=== PATIENT | female | born 1970 | race Caucasian/White ===

== ENCOUNTER 2016-09-29 11:42 | Emergency (ER) | payer OTHER ==
[~2016-09-29] VITALS: Ht 167.6 cm; Wt 86.4 kg
[2016-09-29 13:21] LABS: HEMATOCRIT 42.2 % (36.0-46.0); MCH 27.8 PG (29.0-34.0); MCHC 31.5 G/DL (30.0-36.0); MCV 88.3 FL (83-99); MEAN PLAT.VOLUME 10.2 uM^3 (9.5-12.4); PLATELET COUNT 245 K/uL (156-360); RBC DIS.WIDTH-CV 14.1 % (11.8-14.6); RBC DIS.WIDTH-SD 45.7 % (39-53); RED BLOOD COUNT 4.78 M/uL (3.80-5.20); WHITE BLOOD COUNT 4.4 K/uL (4.1-10.2)
[2016-09-29 13:27] LABS: ADD MIUA? NO; BILIRUBIN NEGATIVE; BLOOD NEGATIVE; COLOR YELLOW ((YELLOW)); GLUCOSE (STRIP) NEGATIVE; KETONES NEGATIVE; LEUKOCYTES NEGATIVE; NITRITE NEGATIVE; PROTEIN (STRIP) NEGATIVE; SPECIFIC GRAVITY 1.017 (1.000-1.030); UROBILINOGEN 0.2 MG/DL (0.2-1.0)
[2016-09-29 13:34] LABS: CHLORIDE 111 mEq/L (99-109); POTASSIUM 3.9 mEq/L (3.7-5.4); SODIUM 140 mEq/L (136-147)
[2016-09-29 13:37] LABS: GLUCOSE 84 mg/dL (70-99)
[2016-09-29 13:38] LABS: ANION GAP 11 MEQ/L (2-14)
[2016-09-29 13:39] LABS: TOTAL BILIRUBIN 0.3 mg/dL (0.0-1.0)
[2016-09-29 13:40] LABS: ALKALINE PHOSPHATASE 94 IU/L (3-129); GFR ESTIMATE (CALCULATED) > 59 mL/min/
[2016-09-29 13:41] LABS: UREA NITROGEN (BUN) 11 mg/dL (9-23)
[2016-09-29 13:49] LABS: QUANTITATIVE HCG < 4.0 MIU/ML
[2016-09-29] MEDS ORDERED: DICYCLOMINE HCL20 MG PO (17:21)
[2016-09-29] MEDS ORDERED: FLEXERIL10 MG PO (17:21)
[2016-09-29] MEDS ORDERED: ULTRAM50 MG PO (17:21)
[2016-09-29 17:58] VITALS: BP 132/76
== END 2016-09-29 17:59 | disposition home or self-care (01) ==
LOC: EME 11:42
PROVIDERS: Nurse Practitioner Family
DX: R10.31 Right lower quadrant pain (principal); Z88.1 Allergy status to other antibiotic agents; Z88.6 Allergy status to analgesic agent; Z91.018 Allergy to other foods; Z98.84 Bariatric surgery status; Z90.710 Acquired absence of both cervix and uterus; I10 Essential (primary) hypertension
CPT/HCPCS: 74177; 76856; 80053; 81003; 84702; 85027; 99281; 99284; J1885; J3010; J7040

== ENCOUNTER 2016-11-02 18:18 | Emergency (ER) | payer OTHER ==
[~2016-11-02] VITALS: Ht 167.6 cm; Wt 84.6 kg
[~2016-11-02 18:18] MED LIST: DICYCLOMINE HCL20 MG PO; FLEXERIL10 MG PO; ULTRAM50 MG PO
[2016-11-02 19:12] LABS: MCH 28.5 PG (29.0-34.0); MCHC 32.3 G/DL (30.0-36.0); MCV 88.3 FL (83-99); MEAN PLAT.VOLUME 9.3 uM^3 (9.5-12.4); PLATELET COUNT 288 K/uL (156-360); RBC DIS.WIDTH-CV 14.2 % (11.8-14.6); RBC DIS.WIDTH-SD 45.3 % (39-53); RED BLOOD COUNT 4.87 M/uL (3.80-5.20); WHITE BLOOD COUNT 5.3 K/uL (4.1-10.2)
[2016-11-02 19:39] LABS: CHLORIDE 106 mEq/L (99-109); POTASSIUM 3.4 mEq/L (3.7-5.4); SODIUM 138 mEq/L (136-147)
[2016-11-02 19:41] LABS: GLUCOSE 106 mg/dL (70-99)
[2016-11-02 19:42] LABS: ANION GAP 13 MEQ/L (2-14); TROP-I INTERPRETATION NEGATIVE; TROPONIN-I < 0.01 ng/mL (0.0-0.30)
[2016-11-02 19:45] LABS: GFR ESTIMATE (CALCULATED) > 59 mL/min/; UREA NITROGEN (BUN) 10 mg/dL (9-23)
[2016-11-02 20:25] LABS: D-DIMER ELISA 0.25 mg/L FEU (< 0.57)
[2016-11-02 23:00] LABS: TROP-I INTERPRETATION NEGATIVE; TROPONIN-I < 0.01 ng/mL (0.0-0.30)
[2016-11-02 23:15] VITALS: BP 139/94
== END 2016-11-02 23:19 | disposition home or self-care (01) ==
LOC: EME 18:18
PROVIDERS: Emergency Medicine
DX: R07.89 Other chest pain (principal); R06.02 Shortness of breath; F32.9 Major depressive disorder, single episode, unspecified; I10 Essential (primary) hypertension; E53.8 Deficiency of other specified B group vitamins; Z98.84 Bariatric surgery status
CPT/HCPCS: 71020; 80048; 84484; 85027; 85379; 93005; 99281; 99285

== ENCOUNTER → 2017-01-30 | Emergency (ER) | payer OTHER ==
[~2017-01-30] VITALS: Ht 167.6 cm; Wt 80.3 kg
[2017-01-30 14:55] VITALS: BP 155/98
== END | disposition left against medical advice (07) ==
LOC: EME 14:53
DX: F10.10 Alcohol abuse, uncomplicated (principal); Z53.21 Procedure and treatment not carried out due to patient leaving prior to being seen by health care provider
CPT/HCPCS: 99281; 99283

== ENCOUNTER 2017-03-28 19:40 | Emergency (ER) | payer OTHER ==
[~2017-03-28] VITALS: Ht 167.6 cm; Wt 80.3 kg
[2017-03-28] MEDS ORDERED: TYLENOL WITH C1 EACH PO (20:13)
[2017-03-28 20:30] VITALS: BP 157/97
== END 2017-03-28 20:34 | disposition home or self-care (01) ==
LOC: EME 19:40
PROC: 2W3KX1Z Immobilization of Left Finger using Splint (ICD-10-PCS; principal; 2017-03-28)
DX: S62.615A Displaced fracture of proximal phalanx of left ring finger, initial encounter for closed fracture (principal); X58.XXXA Exposure to other specified factors, initial encounter
CPT/HCPCS: 73110; 73130; 99281; 99283

== ENCOUNTER 2017-05-31 16:51 | Emergency (ER) | payer OTHER ==
[~2017-05-31] VITALS: Ht 167.6 cm; Wt 79.2 kg
[~2017-05-31 16:51] MED LIST changes: +TYLENOL WITH C1 EACH PO
[2017-05-31] MEDS ORDERED: MOTRIN800 MG PO (17:43)
[2017-05-31 17:55] VITALS: BP 145/76
== END 2017-05-31 17:56 | disposition home or self-care (01) ==
LOC: EME 16:51
DX: M65.4 Radial styloid tenosynovitis [de Quervain] (principal); W20.8XXA Other cause of strike by thrown, projected or falling object, initial encounter; Y92.89 Other specified places as the place of occurrence of the external cause; Y99.0 Civilian activity done for income or pay
CPT/HCPCS: 73090; 99281; 99284

== ENCOUNTER 2017-06-16 10:54 | Emergency (ER) | payer OTHER ==
[~2017-06-16] VITALS: Ht 167.6 cm; Wt 76.3 kg
[~2017-06-16 10:54] MED LIST changes: +MOTRIN800 MG PO
[2017-06-16 12:53] LABS: CHLORIDE 106 mEq/L (99-109); SODIUM 140 mEq/L (136-147)
[2017-06-16 12:55] LABS: GLUCOSE 86 mg/dL (70-99)
[2017-06-16 12:56] LABS: ANION GAP 13 MEQ/L (2-14)
[2017-06-16 12:57] LABS: TOTAL BILIRUBIN 0.3 mg/dL (0.0-1.0)
[2017-06-16 12:59] LABS: ALKALINE PHOSPHATASE 104 IU/L (3-129); GFR ESTIMATE (CALCULATED) > 59 mL/min/
[2017-06-16 13:00] LABS: UREA NITROGEN (BUN) 9 mg/dL (9-23)
[2017-06-16] MEDS ORDERED: ZOFRAN ODT8 MG PO (13:32)
[2017-06-16] MEDS ORDERED: CARAFATE1 GM PO (13:32)
[2017-06-16] MEDS ORDERED: PEPCID20 MG PO (13:32)
[2017-06-16 14:01] VITALS: BP 149/99
== END 2017-06-16 14:01 | disposition home or self-care (01) ==
LOC: EME 10:54
PROVIDERS: Physician Assistant
DX: R11.10 Vomiting, unspecified (principal); R07.89 Other chest pain; F32.9 Major depressive disorder, single episode, unspecified; I10 Essential (primary) hypertension; F43.10 Post-traumatic stress disorder, unspecified; Z88.8 Allergy status to other drugs, medicaments and biological substances
CPT/HCPCS: 71020; 80053; 93005; 99281; 99285; J1885; J2405